=== PATIENT | male | born 1990 | race Two or more races ===

== ENCOUNTER 2023-09-02 15:35 | Emergency (ER) | payer OTHER ==
[~2023-09-02] VITALS: Ht 172.7 cm; Wt 59.4 kg
[2023-09-02] MEDS ORDERED: IBUPROFEN 600 MG TABLET ONE (16:00)
[2023-09-02] MEDS: IBUPROFEN 600 MG TABLET PO ONE (16:13)
[2023-09-02] MEDS ORDERED: IBUP-1953 PO (17:09)
[2023-09-02 17:15] VITALS: BP 112/69; TEMP 97.9; O2SAT 100
== END 2023-09-02 17:16 | disposition home or self-care (01) ==
LOC: ER 15:37
DX: S20.212A Contusion of left front wall of thorax, initial encounter (principal); F31.9 Bipolar disorder, unspecified; F20.9 Schizophrenia, unspecified; F41.9 Anxiety disorder, unspecified; Z60.2 Problems related to living alone; Y04.2XXA Assault by strike against or bumped into by another person, initial encounter; Y93.89 Activity, other specified; Y92.89 Other specified places as the place of occurrence of the external cause; Y99.8 Other external cause status
CPT/HCPCS: 71100-TC

== ENCOUNTER 2023-09-04 14:50 | Emergency (ER) | payer OTHER ==
[~2023-09-04] VITALS: Ht 167.6 cm; Wt 59.0 kg
[~2023-09-04 14:50] MED LIST: IBUP-1953 PO
[2023-09-04] MEDS ORDERED: IBUPROFEN 600 MG TABLET ONE (17:36)
[2023-09-04] MEDS: IBUPROFEN 600 MG TABLET PO ONE (17:41)
[2023-09-04 17:42] VITALS: BP 101/74; TEMP 98.5; O2SAT 99
== END 2023-09-04 17:43 | disposition home or self-care (01) ==
LOC: ER 14:50
DX: R07.89 Other chest pain (principal); F31.9 Bipolar disorder, unspecified; F20.9 Schizophrenia, unspecified; F41.9 Anxiety disorder, unspecified; Z60.2 Problems related to living alone

== ENCOUNTER 2024-01-27 13:59 | Emergency (ER) | payer OTHER ==
[~2024-01-27] VITALS: Ht 167.6 cm; Wt 65.3 kg
[2024-01-27 14:43] LABS: BASOPHILS % (AUTO) 0.3 % (0.0-2.0); HEMATOCRIT 46 % (39-51); HEMOGLOBIN 15.5 g/dL (13.5-17.5); LYMPHOCYTES # (AUTO) 0.1 K/uL (0.8-4.8); LYMPHOCYTES % (AUTO) 0.6 % (20.0-44.0); MEAN CORPUSCULAR HEMOGLOBIN 31 PG (26.0-33.0); MEAN CORPUSCULAR HGB CONC 34 g/dl (31.0-36.0); MEAN CORPUSCULAR VOLUME 92 fL (80-96); MONOCYTES # (AUTO) 0.1 K/uL (0.1-1.30); MONOCYTES % (AUTO) 0.7 % (2.0-12.0); NEUTROPHILS # (AUTO) 14.4 K/uL (1.8-8.9); NEUTROPHILS % (AUTO) 98.4 % (43.0-81.0); PLATELET COUNT (AUTO) 190 K/uL (150-450); RED BLOOD CELL COUNT(AUTO) 5.02 MIL/uL (4.5-6.0); RED CELL DISTRIBUTION WIDTH 13.7 % (11.5-15.0); WHITE BLOOD COUNT (AUTO) 14.6 K/uL (4.3-11.0)
[2024-01-27 15:02] LABS: ALBUMIN 3.9 g/dL (3.4-5.0); BILIRUBIN,DIRECT 0.2 mg/dL (0.0-0.2); BILIRUBIN,TOTAL 0.9 mg/dL (0.2-1.0); CALCIUM, SERUM 9.3 mg/dL (8.5-10.1); POTASSIUM 4.5 mmol/L (3.5-5.1); TOTAL PROTEIN, SERUM 7.1 g/dL (6.4-8.2)
[2024-01-27] MEDS ORDERED: KETOROLAC TROMETHAMINE 15 MG/ML VIAL ONE (15:07)
[2024-01-27] MEDS: IV NS 0.9% 1,000 ML BAG IV ONE (15:23)
[2024-01-27] MEDS: KETOROLAC TROMETHAMINE 15 MG/ML VIAL IV ONE (15:25)
[2024-01-27 15:56] LABS: APPEARANCE,URINE CLEAR (CLEAR); BILIRUBIN,URINE NEGATIVE (NEGATIVE); BLOOD, URINE NEGATIVE Ery/uL (NEGATIVE); COLOR,URINE DARK YELLOW (YELLOW); KETONES,URINE TRACE mg/dL (NEGATIVE); LEUKOCYTE ESTERASE ,URINE NEGATIVE (NEGATIVE); NITRITE, URINE NEGATIVE (NEGATIVE); PROTEIN,URINE TRACE mg/dl (NEGATIVE); UGLUCOSE NEGATIVE (NEGATIVE)
[2024-01-27 16:05] LABS: ADD URINE CULTURE NO; BACTERIA,URINE 1+ /HPF (None Seen); MUCUS,URINE Few /LPF (None Seen); SQUAMOUS EPITHELIAL CELL,UR None Seen /HPF (None Seen); WBC,URINE 0-2 /HPF (0-3)
[2024-01-27] MEDS ORDERED: DOXY100T2 PO (16:19)
[2024-01-27] MEDS ORDERED: IBUP-1490 PO (16:19)
[2024-01-27] MEDS ORDERED: CEFTRIAXONE 500 MG VIAL ONE (16:36)
[2024-01-27] MEDS: CEFTRIAXONE 500 MG VIAL IM ONE (16:41)
[2024-01-27 16:52] VITALS: BP 101/68; TEMP 98.2; O2SAT 99
== END 2024-01-27 16:53 | disposition home or self-care (01) ==
LOC: ER 14:06
DX: R30.0 Dysuria (principal); E86.0 Dehydration; R10.9 Unspecified abdominal pain; F31.9 Bipolar disorder, unspecified; F20.9 Schizophrenia, unspecified; Z79.1 Long term (current) use of non-steroidal anti-inflammatories (NSAID); Z60.2 Problems related to living alone
CPT/HCPCS: 99285; 74176; 96374; 96361; 85025; 80048; 83690; 80076; 81001; 36415; 96372; J0696; J7030; J1885

== ENCOUNTER 2024-04-02 06:11 | Emergency (ER) | payer OTHER ==
[~2024-04-02] VITALS: Ht 170.2 cm; Wt 65.8 kg
[~2024-04-02 06:11] MED LIST changes: +DOXY100T2 PO; +IBUP-1490 PO
[2024-04-02] MEDS ORDERED: METH32TA2 PO (07:56)
[2024-04-02] MEDS ORDERED: GABA-536 PO (07:56)
[2024-04-02] MEDS ORDERED: methylPREDNISolone SOD SUCC 125 MG/2ML VIAL ONE (07:59)
[2024-04-02] MEDS: methylPREDNISolone SOD SUCC 125 MG/2ML VIAL IM ONE (08:04)
[2024-04-02 08:10] VITALS: BP 119/81; TEMP 98.8; O2SAT 98
== END 2024-04-02 08:11 | disposition home or self-care (01) ==
LOC: ER 06:21
DX: G35 Multiple sclerosis (principal); F31.9 Bipolar disorder, unspecified; F41.9 Anxiety disorder, unspecified; M19.90 Unspecified osteoarthritis, unspecified site
CPT/HCPCS: 99283; 96372; J2919

== ENCOUNTER 2024-04-15 23:28 | Emergency (ER) | payer OTHER ==
[~2024-04-15] VITALS: Ht 172.7 cm; Wt 65.8 kg
[~2024-04-15 23:28] MED LIST changes: +GABA-536 PO; +METH32TA2 PO
[2024-04-16 01:17] VITALS: BP 114/60; TEMP 98.2; O2SAT 100
== END 2024-04-16 01:37 | disposition home or self-care (01) ==
LOC: ER 23:36
DX: G89.29 Other chronic pain (principal); Z76.5 Malingerer [conscious simulation]; G35 Multiple sclerosis; M19.90 Unspecified osteoarthritis, unspecified site; F31.9 Bipolar disorder, unspecified; Z79.899 Other long term (current) drug therapy; Z79.52 Long term (current) use of systemic steroids; Z60.2 Problems related to living alone

== ENCOUNTER 2024-06-05 13:58 | Emergency (ER) | payer OTHER ==
[~2024-06-05] VITALS: Ht 167.6 cm; Wt 59.9 kg
[2024-06-05] MEDS ORDERED: MORPHINE SULFATE INJ 4 MG/ML DISP.SYRIN ONE (17:46)
[2024-06-05] MEDS ORDERED: METHOCARBAMOL (500MG) 500 MG TABLET ONE (18:02)
[2024-06-05] MEDS: methylPREDNISolone SOD SUCC 125 MG/2ML VIAL IV ONE (18:09)
[2024-06-05] MEDS: METHOCARBAMOL (750MG) 750 MG TABLET PO SCH (18:09)
[2024-06-05] MEDS: MORPHINE SULFATE INJ 2 MG/ML DISP.SYRIN IV ONE (18:10)
[2024-06-05 18:28] LABS: APPEARANCE,URINE CLEAR (CLEAR); BILIRUBIN,URINE NEGATIVE (NEGATIVE); BLOOD, URINE NEGATIVE Ery/uL (NEGATIVE); COLOR,URINE DARK YELLOW (YELLOW); KETONES,URINE 1+ mg/dL (NEGATIVE); LEUKOCYTE ESTERASE ,URINE NEGATIVE (NEGATIVE); NITRITE, URINE NEGATIVE (NEGATIVE); PROTEIN,URINE NEGATIVE (NEGATIVE); UGLUCOSE NEGATIVE (NEGATIVE)
[2024-06-05 18:31] LABS: BASOPHILS % (AUTO) 0.1 % (0.0-2.0); EOSINOPHILS % (AUTO) 0.2 % (0.0-6.0); HEMATOCRIT 46 % (39-51); HEMOGLOBIN 15.8 g/dL (13.5-17.5); LYMPHOCYTES # (AUTO) 0.8 K/uL (0.8-4.8); LYMPHOCYTES % (AUTO) 8.5 % (20.0-44.0); MEAN CORPUSCULAR HEMOGLOBIN 32 PG (26.0-33.0); MEAN CORPUSCULAR HGB CONC 34 g/dl (31.0-36.0); MEAN CORPUSCULAR VOLUME 93 fL (80-96); MONOCYTES # (AUTO) 0.9 K/uL (0.1-1.30); MONOCYTES % (AUTO) 9.6 % (2.0-12.0); NEUTROPHILS # (AUTO) 7.5 K/uL (1.8-8.9); NEUTROPHILS % (AUTO) 81.6 % (43.0-81.0); PLATELET COUNT (AUTO) 227 K/uL (150-450); RED BLOOD CELL COUNT(AUTO) 4.94 MIL/uL (4.5-6.0); RED CELL DISTRIBUTION WIDTH 13.9 % (11.5-15.0); WHITE BLOOD COUNT (AUTO) 9.2 K/uL (4.3-11.0)
[2024-06-05 18:33] LABS: CALCIUM, SERUM 9.1 mg/dL (8.5-10.1); CREATININE 0.7 mg/dL (0.6-1.3); POTASSIUM 3.8 mmol/L (3.5-5.1)
[2024-06-05 18:39] LABS: BILIRUBIN,TOTAL 0.5 mg/dL (0.2-1.0); TOTAL PROTEIN, SERUM 6.7 g/dL (6.4-8.2)
[2024-06-05 19:05] LABS: ADD URINE CULTURE NO; BACTERIA,URINE Few /HPF (None Seen); MUCUS,URINE Few /LPF (None Seen); RBC,URINE 0-2 /HPF (0-2); SQUAMOUS EPITHELIAL CELL,UR 0-2 /HPF (None Seen)
[2024-06-05] MEDS ORDERED: PRED50TA PO (19:14)
[2024-06-05] MEDS ORDERED: CEPH-570 PO (19:14)
[2024-06-05] MEDS ORDERED: TIZA4TAB5 PO (19:14)
[2024-06-05 19:30] VITALS: BP 120/81; TEMP 98; O2SAT 100
== END 2024-06-05 19:30 | disposition home or self-care (01) ==
LOC: ER 14:09
DX: G35 Multiple sclerosis (principal); M54.50 Low back pain, unspecified; L05.01 Pilonidal cyst with abscess; F17.200 Nicotine dependence, unspecified, uncomplicated; F31.9 Bipolar disorder, unspecified; G89.29 Other chronic pain; M19.90 Unspecified osteoarthritis, unspecified site; Z79.52 Long term (current) use of systemic steroids; Z79.899 Other long term (current) drug therapy
CPT/HCPCS: 99285; 96374; 72131; 96375; 85025; 81001; 36415; 80053; J2270; J2919

== ENCOUNTER 2024-08-31 19:25 | Emergency (ER) | payer OTHER ==
[~2024-08-31] VITALS: Ht 172.7 cm; Wt 59.0 kg
[~2024-08-31 19:25] MED LIST changes: +CEPH-570 PO; +PRED50TA PO; +TIZA4TAB5 PO
[2024-08-31] MEDS ORDERED: KETOROLAC TROMETHAMINE 15 MG/ML VIAL ONE (20:54)
[2024-08-31] MEDS: KETOROLAC TROMETHAMINE 15 MG/ML VIAL IM ONE (20:55)
[2024-08-31] MEDS ORDERED: IBUP-1490 PO (21:37)
[2024-08-31 21:39] VITALS: BP 121/68; TEMP 98.7; O2SAT 98
== END 2024-08-31 21:39 | disposition home or self-care (01) ==
LOC: ER 19:33
DX: M54.50 Low back pain, unspecified (principal); F17.200 Nicotine dependence, unspecified, uncomplicated; F31.9 Bipolar disorder, unspecified; G35 Multiple sclerosis; G89.29 Other chronic pain; M19.90 Unspecified osteoarthritis, unspecified site; Z79.52 Long term (current) use of systemic steroids; Z79.899 Other long term (current) drug therapy
CPT/HCPCS: 99283; 96372; J1885